=== PATIENT | male | born 1995 | race Caucasian/White ===

== ENCOUNTER 2020-03-31 14:52 | Emergency (ER) | payer OTHER ==
[~2020-03-31] VITALS: Ht 20.3 cm; Wt 100.0 kg
[2020-03-31 15:00] VITALS: TEMP 97.3
[2020-03-31 16:25] VITALS: BP 138/90; PULSE 89
== END 2020-03-31 16:25 | disposition home or self-care (01) ==
LOC: COL.ER 14:52
DX: Z20.822 Contact with and (suspected) exposure to COVID-19 (principal)